=== PATIENT | female | born 1995 | race Caucasian/White ===

== ENCOUNTER 2018-05-13 20:27 | Emergency (ER) | payer OTHER ==
[2018-05-13 20:36] VITALS: RESP 20; TEMP 98.4
[2018-05-13] MEDS ORDERED: KETOROLAC 30 MG/ML 1 ML VIAL IVP STA (21:01)
[2018-05-13] MEDS ORDERED: METHOCARBAMOL 500 MG TAB PO STA (21:01)
--- NOTE | 2018-05-13 21:05 | ED ---
URI HPI - General Chief Complaint: Upper Respiratory Infection Stated Complaint: Chest pain Time Seen by Provider: 05/13/18 20:39 Source: patient, family Mode of arrival: ambulatory Limitations: no limitations - History of Present Illness Initial Comments: Patient is a 22-year-old female presenting for right-sided chest pain. The patient states that for the last couple days, she has been having coughing and states that yesterday, she started having right sided sharp chest pain of the chest with radiation to the right shoulder and right neck. She denies any fevers or chills as well as nausea/vomiting/diarrhea. She also denies abdominal pain but states that she has had some mild shortness of breath. Pt also denies any prolonged periods of immobility, CA, DVT/PE, estrogen use, or recent surgery. - Related Data Previous Rx's Medication Instructions Recorded predniSONE 50 mg PO DAILY #5 tablet 05/13/18 Allergies Allergy/AdvReac Type Severity Reaction Status Date / Time Iodine and Iodide Containing Allergy Rash/Hives Verified 05/13/18 20:37 Produc latex Allergy Rash/Hives Verified 05/13/18 20:37 Sulfa (Sulfonamide Allergy Rash/Hives Verified 05/13/18 20:37 Antibiotics) sulfamethoxazole Allergy Rash/Hives Verified 05/13/18 20:37 [From Bactrim] trimethoprim [From Bactrim] Allergy Rash/Hives Verified 05/13/18 20:37 Review of Systems ROS Statement: Those systems with pertinent positive or pertinent negative responses have been documented in the HPI. Constitutional: Negative for chills, fatigue and fever. HENT: Negative for congestion. Respiratory: Negative for chest tightness, and wheezing. Positive for cough and shortness of breath Cardiovascular: Negative and palpitations. Positive for chest pain Gastrointestinal: Negative for abdominal pain. Negative for abdominal distention , diarrhea, nausea and vomiting. Genitourinary: Negative for dysuria. Musculoskeletal: Negative for back pain, neck pain and neck stiffness. Skin: Negative for color change. Neurological: Negative for dizziness, speech difficulty, weakness and light- headedness. Psychiatric/Behavioral: Negative for agitation and confusion. Negative for anxiety ROS Other: All systems not noted in ROS Statement are negative. Past Medical History Additional Past Medical History / Comment(s): migraines History of Any Multi-Drug Resistant Organisms: None Reported Past Surgical History: Back Surgery Past Psychological History: ADD/ADHD, Anxiety, Bipolar, Depression, PTSD Smoking Status: Never smoker Past Alcohol Use History: None Reported Past Drug Use History: None Reported General Exam - General Exam Comments Initial Comments: Constitutional: Pt is oriented to person, place, and time. Pt appears well- developed and well-nourished. No distress. HENT: Head: Normocephalic and atraumatic. Eyes: EOM are normal. Neck: Normal range of motion. Neck supple. Cardiovascular: Normal rate, regular rhythm, S1 normal, S2 normal and normal heart sounds. Exam reveals no gallop and no friction rub. No murmur heard. Pulmonary/Chest: Effort normal and breath sounds normal. No tachypnea and no bradypnea. No respiratory distress. No wheezes or rales noted. Abdominal: Soft. Bowel sounds are normal. Pt exhibits no shifting dullness, no distension, no pulsatile liver, no fluid wave, no abdominal bruit and no ascites. There is no tenderness. There is no rigidity, no rebound, no guarding, no tenderness at McBurney's point and negative Dias's sign. Musculoskeletal: Normal range of motion. Reproducible chest tenderness on the right side and right shoulder tenderness Neurological: Pt is alert and oriented to person, place, and time. No cranial nerve deficit. Skin: Skin is warm and dry. No rash noted. Pt is not diaphoretic. No erythema. No pallor. Psychiatric: Pt has a normal mood and affect. Pt behavior is normal. Thought content normal. Limitations: no limitations Course Vital Signs 05/13/18 05/13/18 20:32 23:00 Temperature 98.4 F Pulse Rate 85 88 Respiratory 20 20 Rate Blood Pressure 130/80 126/82 O2 Sat by Pulse 100 Oximetry Medical Decision Making - Medical Decision Making Chest x-ray showed no evidence of acute pathology including pneumonia and urine test was negative. Patient was perked negative and therefore d-dimer was not performed and based on the patient's symptoms, it is thought that this may be secondary to muscle strain from excessive coughing. Nonetheless, patient was advised to return to emergency department if the symptoms worsen or continue. She was also advised to follow up with PCP next 1-2 days. Patient was agreeable plan. - Lab Data Lab Results 05/13/18 Range/Units 21:10 Urine HCG, Qual Not Detected (Not Detectd) - EKG Data EKG Comments: EKG shows sinus bradycardia of a rate of 57 bpm, MS interval 176, QRS duration 84, QTC 395. There are no significant ST depressions or elevations. Disposition Clinical Impression: Bronchitis, Chest pain Disposition: HOME SELF-CARE Condition: Good Instructions: Upper Respiratory Infection (ED) Prescriptions: predniSONE 50 mg PO DAILY #5 tablet Is patient prescribed a controlled substance at d/c from ED?: No Referrals: Nonstaff,Physician [Primary Care Provider] - 1-2 days Time of Disposition: 22:25
[2018-05-13] MEDS ORDERED: KETOROLAC 30 MG/ML 1 ML VIAL IM STA (21:29)
--- NOTE | 2018-05-13 21:53 | XR ---
EXAMINATION TYPE: XR chest 2V DATE OF EXAM: 05/13/2018 COMPARISON: NONE HISTORY: Right-sided chest pain and cough. TECHNIQUE: Frontal and lateral views of the chest are obtained. FINDINGS: There is no focal air space opacity, pleural effusion, or pneumothorax seen. The cardiac silhouette size is within normal limits. The osseous structures are intact. IMPRESSION: No acute cardiopulmonary process.
[2018-05-13 23:01] VITALS: BP 126/82; PULSE 88
== END 2018-05-13 22:58 | disposition home or self-care (01) ==
LOC: EC 20:27
DX: J40 Bronchitis, not specified as acute or chronic (principal); Z88.2 Allergy status to sulfonamides; Z91.040 Latex allergy status; Z88.8 Allergy status to other drugs, medicaments and biological substances; Z53.8 Procedure and treatment not carried out for other reasons
CPT/HCPCS: 93005; 81025; 71046; 99285; 96372; J1885

== ENCOUNTER 2018-06-04 20:44 | Emergency (ER) | payer OTHER ==
--- NOTE | 2018-06-04 21:40 | ED ---
Anxiety HPI - General Chief Complaint: Anxiety Stated Complaint: anxiety Time Seen by Provider: 06/04/18 21:08 Source: patient Mode of arrival: ambulatory - History of Present Illness Initial Comments: This patient is a 22-year-old woman who presents to be evaluated for feeling of anxiety. She states that she has been under stress and does not have her anxiety medicine. She has moved to the area and has not established a primary care physician. She does not recall the name of the anxiety medication that she used to take. She states that for about 3-4 hours now she has been feeling short of breath, she has had some tingling of the perioral and extremities. She states that sometimes in the past when she has been this anxious she has resorted to cutting herself and she was afraid she may do that again. MD Complaint: anxiety Onset/Timin -: hour(s) Symptoms: dyspnea, perioral numbness/tingling Place: home Previous History of Same: Yes Severity: severe Quality: similar to prior episodes Provoking factors: emotional stress Improves With: nothing Worsens With: nothing - Related Data Home Medications: Previous Rx's Medication Instructions Recorded predniSONE 50 mg PO DAILY #5 tablet 05/13/18 Allergies/Adverse Reactions: Allergies Allergy/AdvReac Type Severity Reaction Status Date / Time Iodine and Iodide Containing Allergy Rash/Hives Verified 06/04/18 20:51 Produc latex Allergy Rash/Hives Verified 06/04/18 20:51 Sulfa (Sulfonamide Allergy Rash/Hives Verified 06/04/18 20:51 Antibiotics) sulfamethoxazole Allergy Rash/Hives Verified 06/04/18 20:51 [From Bactrim] trimethoprim [From Bactrim] Allergy Rash/Hives Verified 06/04/18 20:51 Review of Systems ROS Statement: Those systems with pertinent positive or pertinent negative responses have been documented in the HPI. ROS Other: All systems not noted in ROS Statement are negative. Constitutional: Denies: fever Respiratory: Reports: dyspnea. Denies: cough Cardiovascular: Denies: chest pain, palpitations, syncope Gastrointestinal: Denies: abdominal pain, vomiting, diarrhea Skin: Denies: rash Neurological: Reports: paresthesias. Denies: headache Psychiatric: Reports: anxiety. Denies: depression, auditory hallucinations, visual hallucinations, homicidal thoughts, suicidal thoughts Past Medical History Additional Past Medical History / Comment(s): migraines History of Any Multi-Drug Resistant Organisms: None Reported Past Surgical History: Back Surgery Past Psychological History: ADD/ADHD, Anxiety, Bipolar, Depression, PTSD Smoking Status: Never smoker Past Alcohol Use History: None Reported Past Drug Use History: None Reported General Exam Limitations: no limitations General appearance: alert, in no apparent distress, anxious Head exam: Present: atraumatic, normocephalic Respiratory exam: Present: normal lung sounds bilaterally, other (Patient is hyperventilating when she talks about her anxiety). Absent: wheezes, rales, rhonchi, stridor Cardiovascular Exam: Present: normal rhythm, tachycardia (Rate 104), normal heart sounds. Absent: systolic murmur, diastolic murmur, rubs, gallop GI/Abdominal exam: Present: soft. Absent: distended, tenderness, guarding, rebound, mass Extremities exam: Present: normal inspection. Absent: pedal edema Neurological exam: Present: alert, normal gait Psychiatric exam: Present: normal mood, anxious. Absent: depressed, agitated, flat affect, manic, homicidal ideation, suicidal ideation Skin exam: Present: warm, dry, intact, normal color. Absent: rash Course Vital Signs 06/04/18 20:48 Temperature 98.1 F Pulse Rate 104 H Respiratory 20 Rate Blood Pressure 112/78 O2 Sat by Pulse 98 Oximetry Medical Decision Making - Lab Data Lab Results 06/04/18 06/04/18 Range/Units 21:50 21:50 Urine HCG, Qual Not Detected (Not Detectd) Urine Opiates Screen Not Detected (NotDetected) Ur Oxycodone Screen Not Detected (NotDetected) Urine Methadone Screen Not Detected (NotDetected) Ur Propoxyphene Screen Not Detected (NotDetected) Ur Barbiturates Screen Not Detected (NotDetected) U Tricyclic Antidepress Not Detected (NotDetected) Ur Phencyclidine Scrn Not Detected (NotDetected) Ur Amphetamines Screen Not Detected (NotDetected) U Methamphetamines Scrn Not Detected (NotDetected) U Benzodiazepines Scrn Not Detected (NotDetected) Urine Cocaine Screen Not Detected (NotDetected) U Marijuana (THC) Screen Not Detected (NotDetected) Disposition Clinical Impression: Acute anxiety Disposition: HOME SELF-CARE Condition: Good Instructions: Generalized Anxiety Disorder (ED) Is patient prescribed a controlled substance at d/c from ED?: No Referrals: Kp Poole MD [Primary Care Provider] - 1-2 days
[2018-06-04 22:34] LABS: Amphetamine Screen,Urine Not Detected (NotDetected); Barbiturate Screen,Urine Not Detected (NotDetected); Benzodiazepines Screen,Urine Not Detected (NotDetected); Cocaine Screen,Urine Not Detected (NotDetected); Methadone Screen, Urine Not Detected (NotDetected); Opiate Screen,Urine Not Detected (NotDetected); Oxycodone Screen, Urine Not Detected (NotDetected); Phencyclidine Screen,Urine Not Detected (NotDetected); Tricyclic Antidepressant,Urine Not Detected (NotDetected); Urn Cannabinoid Scrn Not Detected (NotDetected)
[2018-06-05 00:25] VITALS: BP 124/90; PULSE 87; RESP 18; TEMP 97.3
== END 2018-06-05 00:23 | disposition home or self-care (01) ==
LOC: EC 20:44 → SUPCPDRO 20:44 → EC 06-05 00:23
DX: F41.9 Anxiety disorder, unspecified (principal); R06.02 Shortness of breath; R20.2 Paresthesia of skin; Z91.040 Latex allergy status; Z88.2 Allergy status to sulfonamides; Z88.8 Allergy status to other drugs, medicaments and biological substances
CPT/HCPCS: 80306; 81025; 82075; 96372; 99284

== ENCOUNTER 2019-02-28 06:33 | Emergency (ER) | payer OTHER ==
[2019-02-28 06:44] VITALS: PULSE 63; RESP 18; TEMP 98
--- NOTE | 2019-02-28 07:12 | XR ---
EXAMINATION TYPE: XR knee complete RT DATE OF EXAM: 02/28/2019 CLINICAL HISTORY: Right knee pain after injury TECHNIQUE: Three views of the right knee are obtained. COMPARISON: None. FINDINGS: There is no acute fracture/dislocation evident in right knee. The tri-compartment joint s paces appear within normal limits. The overlying soft tissue appears unremarkable. IMPRESSION: There is no acute fracture or dislocation in the right knee.
--- NOTE | 2019-02-28 07:19 | ED ---
Lower Extremity Injury HPI - General Chief Complaint: Extremity Injury, Lower Stated Complaint: Knee Injury [facility] Time Seen by Provider: 02/28/19 06:58 Source: patient, RN notes reviewed Mode of arrival: ambulatory Limitations: no limitations - History of Present Illness Initial Comments: This a 23-year-old female presents emergency Department chief complaint of right knee pain. Patient is a couple minutes ago at work she was coming cigarettes and states that she turned and struck her knee into a computer. Patient states that it stolen bothersome. Patient states she was wearing her neurologist knee immobilizer. She states she never twisted it and felt a pop. Patient states that she is able to ambulate but states it is sore. She's not been taking anything for the discomfort. - Related Data Previous Rx's Medication Instructions Recorded Ibuprofen [Motrin] 600 mg PO Q8HR PRN #20 tab 02/28/19 Allergies Allergy/AdvReac Type Severity Reaction Status Date / Time Iodine and Iodide Containing Allergy Rash/Hives Verified 02/28/19 07:17 Produc latex Allergy Rash/Hives Verified 02/28/19 07:17 Sulfa (Sulfonamide Allergy Rash/Hives Verified 02/28/19 07:17 Antibiotics) sulfamethoxazole Allergy Rash/Hives Verified 02/28/19 07:17 [From Bactrim] trimethoprim [From Bactrim] Allergy Rash/Hives Verified 02/28/19 07:17 Review of Systems ROS Statement: Those systems with pertinent positive or pertinent negative responses have been documented in the HPI. ROS Other: All systems not noted in ROS Statement are negative. Past Medical History Additional Past Medical History / Comment(s): migraines, scoliosis, bulging disc, History of Any Multi-Drug Resistant Organisms: None Reported Past Surgical History: Back Surgery Past Psychological History: ADD/ADHD, Anxiety, Bipolar, Depression, PTSD Smoking Status: Never smoker Past Alcohol Use History: None Reported Past Drug Use History: None Reported General Exam Limitations: no limitations General appearance: alert, in no apparent distress Head exam: Present: atraumatic, normocephalic, normal inspection Eye exam: Present: normal appearance, PERRL, EOMI. Absent: scleral icterus, conjunctival injection, periorbital swelling Respiratory exam: Present: normal lung sounds bilaterally. Absent: respiratory distress, wheezes, rales, rhonchi, stridor Cardiovascular Exam: Present: regular rate, normal rhythm, normal heart sounds. Absent: systolic murmur, diastolic murmur, rubs, gallop, clicks Extremities exam: Present: normal inspection, full ROM, tenderness, normal capillary refill, other (There is mild tenderness to the right knee diffusely there is no localized tenderness no ecchymosis no effusion no laxity). Absent: pedal edema, joint swelling, calf tenderness Neurological exam: Present: alert, oriented X3, CN II-XII intact, reflexes normal. Absent: motor sensory deficit Course Vital Signs 02/28/19 06:38 Temperature 98.0 F Pulse Rate 63 Respiratory 18 Rate O2 Sat by Pulse 100 Oximetry Medical Decision Making - Medical Decision Making 23-year-old female presented for right knee pain. Patient is a right knee contusion she had no mechanism of injury for sprain or ligamentous injury. Patient will be advised to continue ibuprofen and return for any worsening sym ptoms. Disposition Clinical Impression: Contusion of right knee Disposition: HOME SELF-CARE Condition: Stable Instructions (If sedation given, give patient instructions): Knee Pain (ED), Contusion in Adults (ED) Additional Instructions: Please return to the Emergency Department if symptoms worsen or any other concerns. Prescriptions: Ibuprofen [Motrin] 600 mg PO Q8HR PRN #20 tab PRN Reason: Pain Is patient prescribed a controlled substance at d/c from ED?: No Referrals: None,Stated [Primary Care Provider] - 1-2 days Time of Disposition: 07:19
[2019-02-28 07:25] VITALS: BP 125/73
== END 2019-02-28 07:34 | disposition home or self-care (01) ==
LOC: EC 06:33
DX: S80.01XA Contusion of right knee, initial encounter (principal); Z88.2 Allergy status to sulfonamides; Z91.040 Latex allergy status; Z91.041 Radiographic dye allergy status; W22.8XXA Striking against or struck by other objects, initial encounter; Y92.39 Other specified sports and athletic area as the place of occurrence of the external cause; Y99.0 Civilian activity done for income or pay
CPT/HCPCS: 99283

== ENCOUNTER 2020-09-06 20:44 | Emergency (ER) | payer OTHER ==
[2020-09-06 20:49] VITALS: TEMP 98.5
[2020-09-06] MEDS ORDERED: ONDANSETRON 4 MG/2 ML VIAL IVP STA (20:53)
[2020-09-06] MEDS ORDERED: SODIUM CHLORIDE 0.9% 1,000 ML IV STA (20:53)
[2020-09-06] MEDS ORDERED: PANTOPRAZOLE 40 MG/10 ML VIAL IVP STA (20:53)
[2020-09-06 21:34] LABS: Basophils % (A) 0 %; Eosinophils # (A) 0.1 k/uL (0-0.7); Eosinophils % (A) 1 %; HCT 41.7 % (34.0-46.0); HGB 14.6 gm/dL (11.4-16.0); Lymphocytes # (A) 3.4 k/uL (1.0-4.8); Lymphocytes % (A) 35 %; MCH 31.1 pg (25.0-35.0); MCV 88.7 fL (80.0-100.0); Mean Platelet Volume 6.7; Monocytes # (A) 0.7 k/uL (0-1.0); Monocytes % (A) 8 %; Neutrophils # (A) 5.2 k/uL (1.3-7.7); Neutrophils % (A) 54 %; Platelet Count 224 k/uL (150-450); RDW 12.1 % (11.5-15.5); WBC 9.7 k/uL (3.8-10.6)
[2020-09-06 21:45] LABS: ALT 38 U/L (4-34); AST 32 U/L (14-36); African American GFR (CKD) >90 (>60 ml/min/1.73 sqM); Albumin 4.4 g/dL (3.5-5.0); Alkaline Phosphatase 64 U/L (38-126); Anion Gap 11 mmol/L; Appearance,Urine Clear (Clear); Bacteria,Urine Rare /hpf; Bilirubin,Urine Negative (Negative); Blood Urea Nitrogen 12 mg/dL (7-17); Blood,Urine Negative (Negative); Calcium 9.6 mg/dL (8.4-10.2); Carbon Dioxide 22 mmol/L (22-30); Chloride 104 mmol/L (98-107); Color,Urine Light Yellow; Glucose 99 mg/dL (74-99); Glucose,Urine (UA) Negative (Negative); Ketones,Urine Negative (Negative); Leukocyte Esterase,Urine Trace (Negative); Lipase 78 U/L (23-300); Nitrite,Urine Negative (Negative); Non-African American GFR(CKD) >90 (>60 ml/min/1.73 sqM); PH, Urine 6.5 (5.0-8.0); Potassium 3.8 mmol/L (3.5-5.1); Protein,Urine Negative (Negative); RBC,Urine <1 /hpf (0-5); Sodium 137 mmol/L (137-145); Specific Gravity,Urine 1.009 (1.001-1.035); Squamous Epithelial Cell,Urine 4 /hpf (0-4); Total Bilirubin 0.5 mg/dL (0.2-1.3); Total Protein 7.3 g/dL (6.3-8.2); Urobilinogen,Urine <2.0 mg/dL (<2.0); WBC,Urine 3 /hpf (0-5)
[2020-09-06] MEDS ORDERED: MORPHINE SULFATE 4 MG/ML SYRINGE IVP STA (21:47)
[2020-09-06 22:13] VITALS: BP 120/80; PULSE 64; RESP 18
--- NOTE | 2020-09-06 22:22 | US ---
EXAMINATION TYPE: US abdomen limited DATE OF EXAM: 09/06/2020 COMPARISON: NONE CLINICAL HISTORY: Upper abd pain; RUQ tenderness. Abdominal pain, nausea EXAM MEASUREMENTS: Liver Length: 16.7 cm Gallbladder Wall: 0.3 cm CBD: 0.4 cm Right Kidney: 11.6 x 4.3 x 4.7 cm Technical limitations due to patient's body habitus and overlying bowel content Pancreas: Obscured by bowel gas Liver: appears wnl Gallbladder: no evidence of stones Evidence for sonographic Dias's sign: no CBD: appears wnl Right Kidney: no evidence of hydronephrosis IMPRESSION: Normal Limited abdominal sonogram. No gallstones or dilated ducts.
[2020-09-06] MEDS ORDERED: FAMOTIDINE 20 MG/2 ML VIAL IV STA (22:27)
[2020-09-06] MEDS ORDERED: diphenhydrAMINE 50 MG/ML 1 ML VIAL IVP STA (22:27)
[2020-09-06] MEDS ORDERED: methylPREDNISolone SOD SUCCI 125 MG/2 ML VIAL IV STA (22:27)
--- NOTE | 2020-09-06 22:49 | ED ---
Nausea/Vomiting/Diarrhea HPI - General Chief complaint: Nausea/Vomiting/Diarrhea Stated complaint: Abd Pain Time Seen by Provider: 09/06/20 20:52 Source: patient Mode of arrival: ambulatory Limitations: no limitations - History of Present Illness Initial comments: 24-year-old female patient presents to the emergency department today for evaluation of upper abdominal pain. Patient states the pain has been present for the last 6 days. States that she has been nauseated and has had episodes of vomiting. She denies any diarrhea or constipation. Denies any fever. Denies chance of . Denies history of abdominal surgeries. Denies use of med ication for her symptoms. States this symptoms seemed to worsen in the evening. States no change with eating or drinking. Denies abnormal vaginal bleeding or discharge. Denies concern for STI. Patient denies any recent rash, cough, shortness of breath, chest pain, back pain, numbness, tingling, dizziness, weakness, hematuria, dysuria, urinary urgency, urinary frequency, headache, visual changes, or any other complaints. - Related Data Home Medications Medication Instructions Recorded Confirmed SUMAtriptan succinate [Imitrex] 50 mg PO BID PRN 09/06/20 09/06/20 Previous Rx's Medication Instructions Recorded Famotidine [Pepcid] 20 mg PO HS #30 tablet 09/06/20 Allergies Allergy/AdvReac Type Severity Reaction Status Date / Time adhesive tape Allergy Rash/Hives Verified 09/06/20 21:05 Iodine and Iodide Containing Allergy Rash/Hives Verified 09/06/20 21:05 Produc latex Allergy Rash/Hives Verified 09/06/20 21:05 Sulfa (Sulfonamide Allergy Rash/Hives Verified 09/06/20 21:05 Antibiotics) sulfamethoxazole Allergy Rash/Hives Verified 09/06/20 21:05 [From Bactrim] trimethoprim [From Bactrim] Allergy Rash/Hives Verified 09/06/20 21:05 Review of Systems ROS Statement: Those systems with pertinent positive or pertinent negative responses have been documented in the HPI. ROS Other: All systems not noted in ROS Statement are negative. Past Medical History Additional Past Medical History / Comment(s): migraines, scoliosis, bulging disc, History of Any Multi-Drug Resistant Organisms: None Reported Past Surgical History: Back Surgery Past Psychological History: ADD/ADHD, Anxiety, Bipolar, Depression, PTSD Smoking Status: Current some day smoker Past Alcohol Use History: Rare Past Drug Use History: None Reported General Exam Limitations: no limitations General appearance: alert, in no apparent distress, other (This is a well- developed, well-nourished adult female patient in no acute distress. Vital signs upon presentation are temperature 98.5F, pulse 71, respirations 16, blood pressure 120/74, pulse ox 95% on room air.) Eye exam: Present: normal appearance, PERRL, EOMI. Absent: scleral icterus, conjunctival injection, periorbital swelling ENT exam: Present: normal exam, normal oropharynx, mucous membranes moist Respiratory exam: Present: normal lung sounds bilaterally. Absent: respiratory distress, wheezes, rales, rhonchi, stridor Cardiovascular Exam: Present: regular rate, normal rhythm, normal heart sounds. Absent: systolic murmur, diastolic murmur, rubs, gallop, clicks GI/Abdominal exam: Present: soft, tenderness (Generalized abd tenderness), normal bowel sounds. Absent: distended, guarding, rebound, rigid Neurological exam: Present: alert, oriented X3, CN II-XII intact Psychiatric exam: Present: normal affect, normal mood Skin exam: Present: warm, dry, intact, normal color. Absent: rash Course Vital Signs 09/06/20 09/06/20 20:45 22:12 Temperature 98.5 F Pulse Rate 71 64 Respiratory 16 18 Rate Blood Pressure 120/74 120/80 O2 Sat by Pulse 95 99 Oximetry Medical Decision Making - Medical Decision Making 24-year-old female patient presented to the emergency Department with a 6 day history of upper abdominal pain, nausea, vomiting especially in the evenings. Physical examination did reveal upper abdominal tenderness. She is afebrile. Normal vital signs. Labs reviewed and were unremarkable. Ultrasound of the upper abdomen was obtained and was negative. Patient continued to have pain rated at a 9 out of 10 on the pain scale so we did perform CT abdomen and pelvis which was negative. Upon reevaluation she is now resting comfortably states her symptoms are somewhat improved. She'll be discharged with up her prescription for Pepcid for possible gastritis. She is instructed to follow-up with her primary care physician and GI specialist for further evaluation. Return parameters were discussed in detail. She verbalizes understanding and agrees with this plan. Case discussed with my attending Dr. Espana. - Lab Data Result diagrams: 09/06/20 21:07 09/06/20 21:07 Lab Results 09/06/20 09/06/20 09/06/20 Range/Units 21:07 21:07 21:07 WBC 9.7 (3.8-10.6) k/uL RBC 4.70 (3.80-5.40) m/uL Hgb 14.6 (11.4-16.0) gm/dL Hct 41.7 (34.0-46.0) % MCV 88.7 (80.0-100.0) fL MCH 31.1 (25.0-35.0) pg MCHC 35.0 (31.0-37.0) g/dL RDW 12.1 (11.5-15.5) % Plt Count 224 (150-450) k/uL MPV 6.7 Neutrophils % 54 % Lymphocytes % 35 % Monocytes % 8 % Eosinophils % 1 % Basophils % 0 % Neutrophils # 5.2 (1.3-7.7) k/uL Lymphocytes # 3.4 (1.0-4.8) k/uL Monocytes # 0.7 (0-1.0) k/uL Eosinophils # 0.1 (0-0.7) k/uL Basophils # 0.0 (0-0.2) k/uL Sodium (137-145) mmol/L Potassium (3.5-5.1) mmol/L Chloride (98-107) mmol/L Carbon Dioxide (22-30) mmol/L Anion Gap mmol/L BUN (7-17) mg/dL Creatinine (0.52-1.04) mg/dL Est GFR (CKD-EPI)AfAm (>60 ml/min/1.73 sqM) Est GFR (CKD-EPI)NonAf (>60 ml/min/1.73 sqM) Glucose (74-99) mg/dL Calcium (8.4-10.2) mg/dL Total Bilirubin (0.2-1.3) mg/dL AST (14-36) U/L ALT (4-34) U/L Alkaline Phosphatase (38-126) U/L Total Protein (6.3-8.2) g/dL Albumin (3.5-5.0) g/dL Lipase (23-300) U/L Urine Color Light Yellow Urine Appearance Clear (Clear) Urine pH 6.5 (5.0-8.0) Ur Specific [place] 1.009 (1.001-1.035) Urine Protein Negative (Negative) Urine Glucose (UA) Negative (Negative) Urine Ketones Negative (Negative) Urine Blood Negative (Negative) Urine Nitrite Negative (Negative) Urine Bilirubin Negative (Negative) Urine Urobilinogen <2.0 (<2.0) mg/dL Ur Leukocyte Esterase Trace H (Negative) Urine RBC <1 (0-5) /hpf Urine WBC 3 (0-5) /hpf Ur Squamous Epith Cells 4 (0-4) /hpf Urine Bacteria Rare H (None) /hpf Urine HCG, Qual Not Detected (Not Detectd) 09/06/20 Range/Units 21:07 WBC (3.8-10.6) k/uL RBC (3.80-5.40) m/uL Hgb (11.4-16.0) gm/dL Hct (34.0-46.0) % MCV (80.0-100.0) fL MCH (25.0-35.0) pg MCHC (31.0-37.0) g/dL RDW (11.5-15.5) % Plt Count (150-450) k/uL MPV Neutrophils % % Lymphocytes % % Monocytes % % Eosinophils % % Basophils % % Neutrophils # (1.3-7.7) k/uL Lymphocytes # (1.0-4.8) k/uL Monocytes # (0-1.0) k/uL Eosinophils # (0-0.7) k/uL Basophils # (0-0.2) k/uL Sodium 137 (137-145) mmol/L Potassium 3.8 (3.5-5.1) mmol/L Chloride 104 (98-107) mmol/L Carbon Dioxide 22 (22-30) mmol/L Anion Gap 11 mmol/L BUN 12 (7-17) mg/dL Creatinine 0.57 (0.52-1.04) mg/dL Est GFR (CKD-EPI)AfAm >90 (>60 ml/min/1.73 sqM) Est GFR (CKD-EPI)NonAf >90 (>60 ml/min/1.73 sqM) Glucose 99 (74-99) mg/dL Calcium 9.6 (8.4-10.2) mg/dL Total Bilirubin 0.5 (0.2-1.3) mg/dL AST 32 (14-36) U/L ALT 38 H (4-34) U/L Alkaline Phosphatase 64 (38-126) U/L Total Protein 7.3 (6.3-8.2) g/dL Albumin 4.4 (3.5-5.0) g/dL Lipase 78 (23-300) U/L Urine Color Urine Appearance (Clear) Urine pH (5.0-8.0) Ur Specific Lyman (1.001-1.035) Urine Protein (Negative) Urine Glucose (UA) (Negative) Urine Ketones (Negative) Urine Blood (Negative) Urine Nitrite (Negative) Urine Bilirubin (Negative) Urine Urobilinogen (<2.0) mg/dL Ur Leukocyte Esterase (Negative) Urine RBC (0-5) /hpf Urine WBC (0-5) /hpf Ur Squamous Epith Cells (0-4) /hpf Urine Bacteria (None) /hpf Urine HCG, Qual (Not Detectd) - Radiology Data Radiology results: report reviewed, image reviewed Ultrasound of the upper abdomen was obtained. Report was reviewed in its entirety. Impression by Dr. Haynes shows normal limited abdominal sonogram. No gallstones or dilated ducts CT abdomen and pelvis is obtained. Report was reviewed in its entirety. Impression by Dr. Haynes shows negative computed tomography scan of the abdomen and pelvis. Normal appendix. Disposition Clinical Impression: Abdominal pain Disposition: HOME SELF-CARE Condition: Good Instructions (If sedation given, give patient instructions): Diet for Stomach Ulcers and Gastritis (ED), Abdominal Pain (ED) Additional Instructions: Take medications as directed. Follow-up with your primary care physician for recheck in 1-2 days. Follow up with GI specialist as soon as possible. Return to the emergency department for any new, worsening, or concerning symptoms. Prescriptions: Famotidine [Pepcid] 20 mg PO HS #30 tablet Is patient prescribed a controlled substance at d/c from ED?: No Referrals: Nonstaff,Physician [Primary Care Provider] - 1-2 days Joseph Real MD [STAFF PHYSICIAN] - 1-2 days Time of Disposition: 23:30
--- NOTE | 2020-09-06 23:20 | CT ---
EXAMINATION TYPE: CT abdomen pelvis w con DATE OF EXAM: 09/06/2020 COMPARISON: None HISTORY: pain CT DLP: 1783.4 mGycm Automated exposure control for dose reduction was used. CONTRAST: Performed with IV Contrast, patient injected with 100 mL of Isovue 300. Lung bases are clear. There is no pleural effusion. Heart size is normal. There is no pericardial eff usion. Liver spleen stomach pancreas gallbladder appears normal. Bile ducts are not dilated. There is no adrenal mass. Kidneys show satisfactory contrast opacification. There is no hydronephrosi s. Ureters are not dilated. There is no retroperitoneal adenopathy. Bladder distends smoothly. There is no inguinal hernia. Urinary bladder appears normal. Uterus is anteverted. There is no pelvic mass. There is no free fluid in the pelvis. Appendix is posterior and appears normal. There is no mesenter ic edema. There is no ascites or free air. There is no bowel obstruction. Lumbar vertebra have normal spacing and alignment. Posterior elements are intact. There is no nikko myah fracture. Bony pelvis is intact. Hip joints are intact. IMPRESSION: Negative CT scan of the abdomen pelvis. Normal appendix.
[2020-09-06] MEDS ORDERED: ACET/COD 300 MG/30 MG STARTER PACK 6 TAB BTL PO STA (23:48)
== END 2020-09-06 23:58 | disposition home or self-care (01) ==
LOC: EC 20:44
DX: R10.10 Upper abdominal pain, unspecified (principal); G43.909 Migraine, unspecified, not intractable, without status migrainosus; R11.2 Nausea with vomiting, unspecified; R10.817 Generalized abdominal tenderness; F17.200 Nicotine dependence, unspecified, uncomplicated; Z91.048 Other nonmedicinal substance allergy status; Z91.040 Latex allergy status; Z88.2 Allergy status to sulfonamides; Z88.1 Allergy status to other antibiotic agents
CPT/HCPCS: 36415; 80053; 83690; 85025; 81001; 81025; 76705; 74177; 99284; 96374; 96375 ×5; 96361; J2270; J1200; J2930; J2405; C9113; Q9967

== ENCOUNTER → 2021-08-28 | Outpatient (CLI) | payer OTHER ==
--- NOTE | 2021-08-28 14:22 | USB ---
Reason for exam: clinical finding. Physical Findings: Nurse did not find any significant physical abnormalities on exam. US Breast LT Left complete breast ultrasound includes all four quadrants, the retroareolar region and axilla. Finding demonstrates no cystic or solid lesion seen. These results were verbally communicated with the patient and result sheet given to the patient on 08/28/21. ASSESSMENT: Negative, BI-RAD 1 RECOMMENDATION: Clinical management of the left breast. Manage patient on a clinical basis.
== END | disposition home or self-care (01) ==
LOC: RADUSWWP 13:16
PROVIDERS: ATTEND Family Medicine
DX: N64.4 Mastodynia (principal); N64.52 Nipple discharge

== ENCOUNTER → 2021-10-20 | Outpatient (CLI) | payer OTHER ==
--- NOTE | 2021-10-20 23:17 | CONS ---
CONSULTATION REASON FOR EVALUATION: Chronic hypersomnia. This 26-year-old female patient, obese, is coming in for sleep apnea evaluation. She was referred to me for sleep apnea concerns. The patient has been told by her fiance and other people that she stops breathing at night and she snores very loudly. Her sleep is fragmented and the patient wakes up multiple times in the middle of the night. She goes to bed around 10 p.m., wakes up at 6 a.m. in the morning. She works at [email or web address] in [place]. She is able to function. She does not fall asleep during working hours. Nevertheless, she feels fatigued and tired. She is having issues with waking up in the morning, as the patient feels tired and sleepy and she has difficulty with memory and concentration. Over the years, she has lost weight. Her highest weight was 297 pounds and currently she is down to 244. At times she twitches in the middle of the night and sometimes she may hear people talking to her. This is not a constant occurrence. She drinks around 6-8 cups of Coke Zero and Dr. Seymour on a daily basis. She does not drink coffee. She does not drink alcohol. She prefers to sleep on her side. She is a mouth breather and she wakes up with a dry mouth. She does not take any naps during the day. No sleep paralysis. No hallucinations or cataplexy. Current [place] score is 8. PAST MEDICAL HISTORY: Migraines, scoliosis of the back and chronic back pain. SURGICAL HISTORY: Lumbar nerve ablation, surgery for a torn rotator cuff. DRUG ALLERGIES: LATEX. She is also ALLERGIC TO SULFA AND IODINE. OUTPATIENT MEDICATION: Outpatient medications includes naprosyn and sumatriptan. The patient is also on doxycycline and Topamax. SOCIAL HISTORY: The patient is a nonsmoker. No history of alcoholism. No history of IV drugs. She works in a [employer]. FAMILY HISTORY: Her mother has obstructive sleep apnea and she has also skin cancer and hypertension. Father has CAD and [place] and had thyroid disease. REVIEW OF SYSTEMS: Fourteen-point review of system was done. Positive findings were all mentioned in the history of present illness. No history of any seizure activity. No heartburn, chest pain, shortness of breath. No grinding of the teeth. No sleepwalking. No anxiety or panic attacks. No palpitations. No heartburn. No restlessness in the lower extremities. PHYSICAL EXAMINATION: VITAL SIGNS: BP is 117/78, pulse 62, respirations 16, temperature 97.1, saturation 99% on room air. Height is 5 feet 5 inches, weight is 249. BMI is 40.5. Neck size is 16 inches. [place] score is 8. GENERAL APPEARANCE: Calm, comfortable. HEAD: Atraumatic, normocephalic. Neck is supple. No JVD. No goiter or neck masses. Mallampati class IV. The patient has tonsillar enlargement bilaterally. No overbite. LUNGS: Clear to auscultation. Heart sounds are regular rate and rhythm. Normal S1, S2. No S3, S4. No murmurs. ABDOMEN: Soft, nontender. No organomegaly. EXTREMITIES: No edema. No cyanosis or clubbing. NEUROLOGIC: Awake and alert. There is no focal neurological deficit. PSYCHIATRIC: Negative for anxiety or depression. IMPRESSION: 1. Chronic hypersomnia; [place] score of 8. High likelihood for obstructive sleep apnea. 2. Obesity with a BMI of 40.5. The patient has lost weight over the years and currently she is weighing around 249 pounds with a body mass index of 40.5. 3. Loud snoring. 4. Witnessed apneas. 5. Tonsillar enlargement. 6. Migraines. 7. Scoliosis of the spine. PLAN: 1. High suspicion for obstructive sleep apnea. 2. Encourage weight loss. 3. Proceed with a polysomnogram. 4. Will make further recommendations based on the results of the sleep study. MMODL / IJN: [id number] /
== END ==
LOC: SLEEP 15:13
PROVIDERS: ATTEND Internal Medicine Critical Care Medicine
DX: G47.33 Obstructive sleep apnea (adult) (pediatric) (principal); E66.9 Obesity, unspecified; Z68.41 Body mass index [BMI] 40.0-44.9, adult; J35.1 Hypertrophy of tonsils; M41.9 Scoliosis, unspecified; G43.909 Migraine, unspecified, not intractable, without status migrainosus; Z91.048 Other nonmedicinal substance allergy status; Z91.041 Radiographic dye allergy status; Z91.040 Latex allergy status; Z88.2 Allergy status to sulfonamides
CPT/HCPCS: 99211